=== PATIENT | male | born 1980 | race African-American/Black ===

== ENCOUNTER 2018-08-14 13:33 | Emergency (ER) | payer SELFPAY ==
[~2018-08-14] VITALS: Ht 186.7 cm; Wt 86.4 kg
[2018-08-14 14:08] VITALS: Ht 186.7 cm; Wt 86.4 kg
[2018-08-14] MEDS ORDERED: CYCLOBENZAPRINE10 MG PO (15:40)
[2018-08-14] MEDS ORDERED: EC-NAPROSYN500 MG PO (15:40)
[2018-08-14 16:31] VITALS: BP 116/75
== END 2018-08-14 16:31 | disposition home or self-care (01) ==
LOC: D.ER 13:33
DX: S39.012A Strain of muscle, fascia and tendon of lower back, initial encounter (principal); X50.0XXA Overexertion from strenuous movement or load, initial encounter; Y93.89 Activity, other specified; Y92.019 Unspecified place in single-family (private) house as the place of occurrence of the external cause; M62.838 Other muscle spasm; F17.200 Nicotine dependence, unspecified, uncomplicated